=== PATIENT | male | born 1950 | race Caucasian/White ===

== ENCOUNTER 2018-04-29 17:02 | Emergency (ER) | payer OTHER ==
[~2018-04-29] VITALS: Ht 165.1 cm; Wt 83.9 kg
--- NOTE | ~2018-04-29 | EKG ---
[place] [address] 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 : 1950 Requested By: Moiz Paul Order Number: [id number] MD: Kiran Gaytan Measurements Intervals [place] Rate: 78 P: 18 ND: 103 QRS: -47 QRSD: 98 T: 46 QT: 397 QTc: 453 Interpretive Statements Sinus rhythm Ventricular premature complex Left anterior fascicular block Abnormal R-wave progression, early transition Compared to ECG 03/08/2014 05:52:57 Ventricular premature complex(es) now present Anterior T wave abnormality is less pronounced Prolonged QT interval no longer present Electronically Signed On 04-30-2018 8:30:42 [employer]ASH[employer] by Kiran Gaytan [email or web address] <ELECTRONICALLY SIGNED> By: Kiran Gaytan MD, [facility] 04/30/18 0830 1708 1708 Kiran Gaytan MD, [facility] /EPI
[~2018-04-29 17:02] MED LIST: CELEXA20 MG PO; CELEXA40 MG PO; COLACE100 MG PO; CYCLOBENZAPRINE5 MG PO; GARAMYCIN5 M1 OP; GLUCOPHAGE1000 MG PO; HYDROCODONE-AP1 EAC6 PO; KEPPRA 500 MG500 M1 PO; MELATONIN3 MG PO; METFORMIN HCL500 MG PO; MIRALAX17 GM; PHENYTOIN SODI100 M3 PO; PROAIR HFA8.5 GM INH; SIMVASTATIN40 MG PO; TRIAMCINOLONE A80 G2; TYLENOL325 MG PO; [UNRECOGNIZED DRUG - OTHER]
[2018-04-29] MEDS ORDERED: PERCOCET PO (17:16)
[2018-04-29] MEDS ORDERED: MEDROXYPROGESTER5 MG PO (17:23)
[2018-04-29] MEDS ORDERED: REQUIP 0.25 M0.25 M1 PO (17:26)
[2018-04-29] MEDS ORDERED: SILTUSSIN100 MG/5 M PO (17:27)
[2018-04-29 17:33] LABS: ABSOLUTE NEUTROPHILS 5.3 thou/uL (1.4-8.2); BASOPHILS 0.7 % (0.0-2.0); EOSINOPHILS 0.1 % (0.0-3.0); HEMATOCRIT 43.2 % (42.0-52.0); HEMOGLOBIN 14.6 gm/dL (14.0-18.0); MCH 29.3 pg (26.0-34.0); MCHC 33.7 g/dL (28.0-37.0); MCV 86.8 fL (80.0-100.0); MONOCYTES 7.4 % (1.0-8.0); PLATELET COUNT 516 thou/uL (150-400); POLYS 68.8 % (36.0-66.0); RBC 4.98 mil/uL (4.50-6.00); WBC 7.7 thou/uL (4.0-11.0)
[2018-04-29 17:33] LABS: URINE BILIRUBIN NEGATIVE (Negative); URINE BLOOD NEGATIVE (Negative); URINE CLARITY CLEAR; URINE COLOR YELLOW; URINE GLUCOSE-RANDOM* NEGATIVE (Negative); URINE KETONES TRACE (Negative); URINE LEUKOCYTES-REFLEX NEGATIVE (Negative); URINE NITRITE-REFLEX NEGATIVE (Negative); URINE PROTEIN (DIPSTICK) NEGATIVE (Negative); URINE SPECIFIC GRAVITY >= 1.030 (1.005-1.035)
[2018-04-29 17:34] LABS: POTASSIUM 4.2 mmol/L (3.5-5.1)
[2018-04-29 19:35] VITALS: BP 122/67
== END 2018-04-29 19:37 | disposition home or self-care (01) ==
LOC: ER 17:02
PROVIDERS: Emergency Medicine
DX: R56.9 Unspecified convulsions (principal); E11.9 Type 2 diabetes mellitus without complications; J45.909 Unspecified asthma, uncomplicated; K21.9 Gastro-esophageal reflux disease without esophagitis; I10 Essential (primary) hypertension; Z91.013 Allergy to seafood